=== PATIENT | female | born 1940 | race Caucasian/White ===

== ENCOUNTER 2022-05-17 07:38 | Day surgery (SDC) | payer MEDICARE ==
[2022-05-15 11:37] VITALS: BMI 21.9
[~2022-05-17 07:38] MED LIST: Fluorouracil 100 MG, Enoxaparin 25 MG, EPINEPHrine 0.3 MG in Ophthalmic Irrigation Solu... IRR SCH; Midazolam HCl 2 mg/2 ml Vial ONE; fentaNYL PF 100 MCG/2 ML SYRINGE ONE
[2022-05-17] MEDS ORDERED: Cyclopentolate 1% Opth Drop 2 ML BOT ONE (08:14)
[2022-05-17] MEDS ORDERED: Phenylephrine 2.5% Ophth Soln 5 ML BOT ONE (08:14)
[2022-05-17] MEDS ORDERED: Midazolam HCl 2 mg/2 ml Vial ONE (08:49)
[2022-05-17] MEDS ORDERED: PROPOFOL 200 MG/20 ML VIAL ONE (10:28)
[2022-05-17] MEDS ORDERED: Lidocaine 4% PF 5 ML AMP ONE (10:28)
[2022-05-17] MEDS ORDERED: Bupivacaine 0.75% 10 ML VIAL ONE (10:28)
[2022-05-17] MEDS ORDERED: Maxitrol 0.1% Opth Oint 3.5 GM TUBE ONE (10:28)
[2022-05-17] MEDS ORDERED: Triamcinolone 40 MG/ML VIAL ONE (10:28)
[2022-05-17] MEDS ORDERED: Indocyanine Green 25 MG/10 ML VIAL ONE (10:28)
[2022-05-17] MEDS ORDERED: CEFAZOLIN 1 GM VIAL ONE (10:28)
[2022-05-17] MEDS ORDERED: Lidocaine 1% PF 5 ML VIAL ONE (10:28)
== END 2022-05-17 12:15 | disposition home or self-care (01) ==
LOC: SDC 07:38
PROVIDERS: ATTEND Ophthalmology Retina Specialist
PROC: 08T53ZZ Resection of Left Vitreous, Percutaneous Approach (ICD-10-PCS; principal; 2022-05-17)
PROC: 08NF3ZZ Release Left Retina, Percutaneous Approach (ICD-10-PCS; 2022-05-17)
DX: H35.372 Puckering of macula, left eye (principal); I10 Essential (primary) hypertension; G89.4 Chronic pain syndrome; Z87.891 Personal history of nicotine dependence; Z79.890 Hormone replacement therapy; Z79.899 Other long term (current) drug therapy; Z98.41 Cataract extraction status, right eye; Z98.42 Cataract extraction status, left eye; Z96.1 Presence of intraocular lens
CPT/HCPCS: J0171; J0690; J1650; J2250; J2704; J3301; J3490; J9190